=== PATIENT | female | born 1995 | race African-American/Black ===

== ENCOUNTER 2019-01-21 16:20 | Emergency (ER) | payer OTHER ==
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
== END 2019-01-21 18:49 | disposition home or self-care (01) ==
LOC: ERS 16:20
DX: S16.1XXA Strain of muscle, fascia and tendon at neck level, initial encounter (principal); S40.012A Contusion of left shoulder, initial encounter; S40.022A Contusion of left upper arm, initial encounter; S60.222A Contusion of left hand, initial encounter; V49.9XXA Car occupant (driver) (passenger) injured in unspecified traffic accident, initial encounter